=== PATIENT | female | born 1990 | race Hispanic/Latino ===

== ENCOUNTER 2017-11-17 21:52 | Inpatient (IN) | payer SELFPAY ==
[2017-11-17] MEDS ORDERED: DICYCLOMINE HCL 10 MG CAP ONE (22:30)
[2017-11-17] MEDS ORDERED: ONDANSETRON 4 MG/2 ML VIAL ONE ×2 (22:30→23:50)
[2017-11-17] MEDS ORDERED: FAMOTIDINE 20 MG/2 ML VIAL IV ONE (22:30)
[2017-11-17] MEDS ORDERED: NA CHLORIDE 0.9% 1,000 ML ONE (22:31)
[2017-11-17 23:00] LABS: Absolute Lymphocytes (CBC) 1.3 K/uL (0.7-4.9); Absolute Monocytes 0.7 K/uL (0.1-1.3); Absolute Neutrophil 15.3 K/uL (1.8-8.0); Basophils % 0.1 % (0-1.3); Eosinophils % 0.3 % (0-4.4); Lymphocytes % 7.4 % (15.3-44.8); MCH 29.5 pg (27.0-35.0); MCV 89.3 fL (80-100); MPV 10.3 fL (7.6-11.3); Monocytes % 3.8 % (3.3-12.3); RBC Red Blood Cell Count 4.48 M/uL (3.86-4.86)
[2017-11-17 23:11] LABS: Albumin 3.9 g/dL (3.4-5.0); Bilirubin Direct 0.1 mg/dL (0-0.2); Bilirubin Total 0.3 mg/dL (0.2-1.0); Potassium 3.4 mmol/L (3.5-5.1); Protein, Total 8.4 g/dL (6.4-8.2)
[2017-11-17] MEDS ORDERED: KETOROLAC 30 MG/ML INJ ONE (23:50)
[2017-11-18 00:50] LABS: Blood Morphology Comment NOT SEEN (NOT SEEN); Platelet Estimate ADEQ
[2017-11-18 01:09] LABS: Urine Blood TRACE (NEG); Urine Glucose NEGATIVE (NEG); Urine Protein TRACE (NEG); Urine pH 8.5 (5.0-7.0)
[2017-11-18] MEDS ORDERED: NA CHLORIDE 0.9% 1,000 ML ONE (01:27)
[2017-11-18] MEDS ORDERED: CEFTRIAXONE/SWI 1gm 1 GM/10 ML SYR ONE (01:40)
--- NOTE | 2017-11-18 02:32 | ER ---
Nurse's Notes [facility] Name: Gilma Deal Age: 27 yrs Sex: Female : 1990 Arrival Date: 11/17/2017 Time: 21:58 Bed 28 Private MD: Diagnosis: Upper abdominal pain, unspecified-Intractable;Nausea and vomiting Presentation: 11/17 22:15 Presenting complaint: Patient states: she is having upper abdominal pain since approx bb 1500 today has had this pain several times during the past few weeks but it went away today it is not going away and she has vomited several times. Transition of care: patient was not received from another setting of care. Onset of symptoms is unknown. Risk Assessment: Do you want to hurt yourself or someone else? Patient reports no desire to harm self or others. Initial Sepsis Screen: Does the patient meet any 2 criteria? No. Patient's initial sepsis screen is negative. Does the patient have a suspected source of infection? No. Patient's initial sepsis screen is negative. Care prior to arrival: None. 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 - Social history:: Smoking status: Patient/guardian denies using tobacco, Patient/guardian denies using alcohol, street drugs. - Ebola Screening: : No symptoms or risks identified at this time. Screenin:51 Abuse screen: Denies threats or abuse. Denies injuries from another. Nutritional mg2 screening: No deficits noted. Tuberculosis screening: No symptoms or risk factors identified. Fall Risk IV access (20 points). Assessment: 22:49 General: Appears uncomfortable, Behavior is cooperative, restless. Pain: Complains of mg2 pain in abdomen Pain radiates to back Pain currently is 10 out of 10 on a pain scale. Quality of pain is described as aching, Pain began gradually, \T\ 3 pm today Is intermittent. Neuro: Level of Consciousness is awake, alert, obeys commands, Oriented to person, place, time, situation. Cardiovascular: Capillary refill < 3 seconds Patient's skin is warm and dry. Respiratory: Airway is patent Respiratory effort is even, unlabored, Respiratory pattern is regular, symmetrical. GI: Bowel sounds present X 4 quads. Abd is soft and non tender. GI: Abdomen is flat, non-distended, Reports vomiting. : No signs and/or symptoms were reported regarding the genitourinary system. Urine is clear. EENT: No signs and/or symptoms were reported regarding the EENT system. Derm: Skin is intact, Skin is pink, warm \T\ dry. normal. Musculoskeletal: No signs and/or symptoms reported regarding the musculoskeletal system. 11/18 00:17 Reassessment: patient in ct scan now,. mg2 01:35 Reassessment: Patient appears in no apparent distress at this time. Patient and/or mg2 family updated on plan of care and expected duration. Pain level reassessed. Patient is alert, oriented x 3, equal unlabored respirations, skin warm/dry/pink. 03:23 Reassessment: Patient and/or family updated on plan of care and expected duration. Pain mg2 level reassessed. Patient is alert, oriented x 3, equal unlabored respirations, skin warm/dry/pink. pt instructed on need for admit verbalized understanding of and agrees to plan of care. IV site intact, patent with fluids infusing family at bedside awaiting room assignment. Vital Signs: 11/17 22:17 BP 109 / 65; Pulse 58; Resp 18 S; Temp 98.3(O); Pulse Ox 100% on R/A; Weight 67 kg (R); bb Height 5 ft. 6 in. (170 cm) (R); Pain 10/10; 23:04 BP 98 / 53; Pulse 58; Resp 17; Pulse Ox 100% on R/A; Pain 5/10; mg2 11/18 00:31 BP 120 / 47; Pulse 58; Resp 18; Pulse Ox 100% on R/A; mg2 03:25 BP 110 / 60; Pulse 54; Resp 16; Temp 97.8(O); Pulse Ox 100% on R/A; mg2 11/17 22:17 Body Mass Index 23.18 (67.00 kg, 170 cm) bb ED Course: 11/17 21:58 Patient arrived in ED. ag3 22:03 Dmitry Burkett PA is PHCP. cp 22:03 Dmitry Hough MD is Attending Physician. cp 22:17 Triage completed. bb 22:17 Arm band placed on Patient placed in an exam room, on a stretcher, on pulse oximetry. bb Family accompanied patient. 22:20 Tacos Tabor, TANIA is Primary Nurse. mg2 22:51 No provider procedures requiring assistance completed. Inserted saline lock: 20 gauge mg2 in right antecubital area, using aseptic technique. Blood collected. 22:52 Radiology exam delayed due to lab results not completed at this time. test kw1 not completed at this time. 11/18 00:30 CT Abd/Pelvis - W/Contrast In Process Unspecified. EDMS 01:35 Patient has correct armband on for positive identification. mg2 02:31 Lewis Friedman MD is Hospitalizing Provider. cp 04:14 Patient admitted, IV remains in place. bb Administered Medications: 11/17 22:46 Drug: NS 0.9% 1000 ml Route: IV; Rate: 1 bolus; Site: right antecubital; mg2 23:42 Follow up: Response: No adverse reaction; IV Status: Completed infusion mg2 22:46 Drug: Bentyl 20 mg Route: PO; mg2 23:42 Follow up: Response: No adverse reaction; Marked relief of symptoms mg2 22:47 Drug: Zofran 4 mg Route: IVP; Site: right antecubital; mg2 23:42 Follow up: Response: No adverse reaction; Marked relief of symptoms mg2 22:47 Drug: Pepcid 20 mg Route: IVP; Site: right antecubital; mg2 23:42 Follow up: Response: No adverse reaction; Marked relief of symptoms mg2 11/18 00:02 Drug: Zofran 4 mg Route: IVP; Site: right antecubital; mg2 03:37 Follow up: Response: No adverse reaction bb 00:02 Drug: TORadol 30 mg Route: IVP; Site: right antecubital; mg2 03:37 Follow up: Response: No adverse reaction bb 01:24 Drug: NS 0.9% 1000 ml Route: IV; Rate: 125 ml/hr; Site: right antecubital; mg2 03:38 Follow up: IV Status: Infusion continued upon admission bb 01:40 Drug: Rocephin - (cefTRIAXone) 1 grams Route: IVPB; Infused Over: 30 mins; Site: right mg2 antecubital; 01:50 Follow up: IV Status: Completed infusion; IV Intake: 10ml ; administered per protocol bb 01:58 Not Given (Patient Refused): morphine 2 mg IVP once mg2 03:12 Drug: metroNIDAZOLE 500 mg Volume: 100 ml; Route: IVPB; Infused Over: 30 mins; Site[place] [facility] [place]cubital; 03:38 Follow up: IV Status: Completed infusion; IV Intake: 100ml bb Intake: 01:50 IV: 10ml; Total: 10ml. bb 03:38 IV: 100ml; Total: 110ml. bb Outcome: 02:31 Decision to Hospitalize by Provider. cp 03:26 Admitted to Med/surg mg2 03:26 Condition: stable 03:26 Instructed on the need for admit. 04:14 Admitted to Tele via wheelchair, room 414, with chart, Report called to Estiven MARIN bb 04:42 Patient left the ED. tl2 Signatures: Dispatcher [employer] EDMS Daja Rios RN RN bb Dmitry Burkett PA PA cp Emelia Bonilla RN RN tl2 Alexa Mejias 1 Tacos Tabor RN RN mg2 Suzy Stanford3
--- NOTE | 2017-11-18 02:32 | EDPHYS ---
Physician Documentation [facility] Name: Gilma Deal Age: 27 yrs Sex: Female : 1990 Arrival Date: 11/17/2017 Time: 21:58 Bed 28 Private MD: ED Physician Dmitry Hough HPI: 11/17 22:20 This 27 yrs old Female presents to ER via Ambulatory with complaints of cp Abdominal Pain. 22:20 The patient presents with abdominal pain. The symptoms are described as constant. cp Severity of pain: in the emergency department the pain is unchanged despite home interventions. 22:20 Onset: The symptoms/episode began/occurred 3 week(s) ago, and became worse today, and cp persistent. 22:20 Associated signs and symptoms: Pertinent positives: nausea and vomiting, Pertinent cp negatives: constipation, fever, vomiting blood. Modifying factors: the symptoms are aggravated by pressure. 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 - Social history:: Smoking status: Patient/guardian denies using tobacco, Patient/guardian denies using alcohol, street drugs. - Ebola Screening: : No symptoms or risks identified at this time. ROS: 22:25 Constitutional: Negative for body aches, chills, fever, poor PO intake. cp 22:25 Eyes: Negative for injury, pain, redness, and discharge. cp 22:25 ENT: Negative for drainage from ear(s), ear pain, sore throat, difficulty swallowing, difficulty handling secretions. 22:25 Cardiovascular: Negative for chest pain, edema, palpitations. 22:25 Respiratory: Negative for cough, shortness of breath, wheezing. 22:25 Abdomen/GI: Positive for abdominal pain, nausea and vomiting, Negative for constipation, hematemesis, black/tarry stool, rectal bleeding. 22:25 Back: Positive for radiated pain. 22:25 : Negative for urinary symptoms, vaginal bleeding, vaginal discharge. 22:25 Skin: Negative for cellulitis, rash. 22:25 Neuro: Negative for altered mental status, headache, syncope, near syncope, weakness. 22:25 All other systems are negative. Exam: 22:33 Constitutional: The patient appears in no acute distress, alert, awake, non-toxic, well cp developed, well nourished, uncomfortable. 22:33 Head/Face: Normocephalic, atraumatic. Eyes: Pupils equal round and reactive to light, cp extra-ocular motions intact. Lids and lashes normal. Conjunctiva and sclera are non-icteric and not injected. Cornea within normal limits. Periorbital areas with no swelling, redness, or edema. ENT: Nares patent. No nasal discharge, no septal abnormalities noted. Tympanic membranes are normal and external auditory canals are clear. Oropharynx with no redness, swelling, or masses, exudates, or evidence of obstruction, uvula midline. Mucous membranes moist. 22:33 Neck: ROM/movement: is normal, is supple, without pain, no range of motions limitations, no nuchal rigidity. 22:33 Chest/axilla: Inspection: normal, Palpation: is normal, no crepitus, no tenderness. 22:33 Cardiovascular: Rate: bradycardic, Rhythm: regular, Heart sounds: murmur, not appreciated, Edema: is not appreciated, JVD: is not appreciated. 22:33 Respiratory: the patient does not display signs of respiratory distress, Respirations: normal, no use of accessory muscles, no retractions, no splinting, no tachypnea, labored breathing, is not present, Breath sounds: are clear throughout, no decreased breath sounds, no stridor, no wheezing. 22:33 Abdomen/GI: Inspection: abdomen appears normal, Bowel sounds: active, all quadrants, Palpation: soft, in all quadrants, severe abdominal tenderness, in the anterior aspect of right lateral abdomen and right upper quadrant, rebound tenderness, is appreciated in the anterior aspect of right lateral abdomen and right upper quadrant, voluntary guarding, is elicited in the anterior aspect of right lateral abdomen and right upper quadrant. 22:33 Back: pain, that is moderate, of the mid back area. 22:33 Skin: cellulitis, is not appreciated, no rash present. Vital Signs: 22:17 BP 109 / 65; Pulse 58; Resp 18 S; Temp 98.3(O); Pulse Ox 100% on R/A; Weight 67 kg (R); bb Height 5 ft. 6 in. (170 cm) (R); Pain 10/10; 23:04 BP 98 / 53; Pulse 58; Resp 17; Pulse Ox 100% on R/A; Pain 5/10; mg2 11/18 00:31 BP 120 / 47; Pulse 58; Resp 18; Pulse Ox 100% on R/A; mg2 03:25 BP 110 / 60; Pulse 54; Resp 16; Temp 97.8(O); Pulse Ox 100% on R/A; mg2 11/17 22:17 Body Mass Index 23.18 (67.00 kg, 170 cm) bb MDM: 11/17 22:03 Patient medically screened. cp 11/18 00:00 Differential diagnosis: cholecystitis, Cholelithiasis, gastritis, pancreatitis, cp Ureterolithiasis, urinary tract infection. 02:25 Physician consultation: Lewis Friedman MD was called at 02:25, was contacted at 02:25, cp regarding admission, to the medical/surgical unit. patient's condition. 02:30 Data reviewed: vital signs, nurses notes, lab test result(s), radiologic studies, CT cp scan. 11/17 22:16 Order name: Basic Metabolic Panel; Complete Time: 23:40 cp 11/17 23:40 Interpretation: Normal except: K 3.4; GLUC 121; GFR 85. cp 11/17 22:16 Order name: CBC with Diff; Complete Time: 01:11 cp 11/17 23:40 Interpretation: Normal except: WBC 17.3; KAMILLE% 88.4; LYM% 7.4; NEUT A 15.3. cp 11/17 22:16 Order name: Creatinine for Radiology; Complete Time: 23:40 cp 11/17 22:16 Order name: Hepatic Function; Complete Time: 23:40 cp 11/17 23:40 Interpretation: Normal except: TP 8.4; GLOB 4.5; A/G 0.9. cp 11/17 22:16 Order name: Lipase; Complete Time: 23:40 cp 11/17 22:49 Order name: Urine Dipstick--Ancillary (enter results); Complete Time: 01:11 ms 11/17 22:49 Order name: Urine --Ancillary (enter results); Complete Time: 01:11 ms 11/17 23:13 Order name: Manual Differential; Complete Time: 01:11 EDMS 11/18 01:11 Interpretation: Normal except: SEGS 85; LYM 7. cp 11/18 02:48 Order name: Basic Metabolic Panel EDMS 11/18 02:48 Order name: Basic Metabolic Panel EDMS 11/18 02:48 Order name: Basic Metabolic Panel EDMS 11/18 02:48 Order name: CBC with Automated Diff EDMS 11/18 02:48 Order name: CBC with Automated Diff EDMS 11/18 02:48 Order name: CBC with Automated Diff EDMS 11/17 22:16 Order name: CT Abd/Pelvis - W/Contrast cp 11/18 02:48 Order name: Lipase EDMS 11/18 02:48 Order name: Lipase EDMS 11/18 02:48 Order name: Lipase EDCA 11/18 02:48 Order name: Liver (Hepatic) Function EDCA 11/18 02:48 Order name: Liver (Hepatic) Function EDCA 11/18 02:48 Order name: Liver (Hepatic) Function EDCA 11/18 02:49 Order name: Abdomen Exam Limited EDCA 11/17 22:16 Order name: IV Saline Lock; Complete Time: 22:49 cp 11/17 22:16 Order name: Labs collected and sent; Complete Time: 22:49 cp 11/18 02:48 Order name: NPO EDMS Administered Medications: 11/17 22:46 Drug: NS 0.9% 1000 ml Route: IV; Rate: 1 bolus; Site: right antecubital; mg2 23:42 Follow up: Response: No adverse reaction; IV Status: Completed infusion mg2 22:46 Drug: Bentyl 20 mg Route: PO; mg2 23:42 Follow up: Response: No adverse reaction; Marked relief of symptoms mg2 22:47 Drug: Zofran 4 mg Route: IVP; Site: right antecubital; mg2 23:42 Follow up: Response: No adverse reaction; Marked relief of symptoms mg2 22:47 Drug: Pepcid 20 mg Route: IVP; Site: right antecubital; mg2 23:42 Follow up: Response: No adverse reaction; Marked relief of symptoms mg2 11/18 00:02 Drug: Zofran 4 mg Route: IVP; Site: right antecubital; mg2 03:37 Follow up: Response: No adverse reaction bb 00:02 Drug: TORadol 30 mg Route: IVP; Site: right antecubital; mg2 03:37 Follow up: Response: No adverse reaction bb 01:24 Drug: NS 0.9% 1000 ml Route: IV; Rate: 125 ml/hr; Site: right antecubital; mg2 03:38 Follow up: IV Status: Infusion continued upon admission bb 01:40 Drug: Rocephin - (cefTRIAXone) 1 grams Route: IVPB; Infused Over: 30 mins; Site: right mg2 antecubital; 01:50 Follow up: IV Status: Completed infusion; IV Intake: 10ml ; administered per protocol bb 01:58 Not Given (Patient Refused): morphine 2 mg IVP once mg2 03:12 Drug: metroNIDAZOLE 500 mg Volume: 100 ml; Route: IVPB; Infused Over: 30 mins; Site: mg2 right antecubital; 03:38 Follow up: IV Status: Completed infusion; IV Intake: 100ml bb Disposition: 07:18 Co-signature as Attending Physician, Dmitry Hough MD I agree with the assessment and antoinette plan of care. Disposition: 11/18/17 02:31 Hospitalization ordered by Lewis Friedman for Observation. Preliminary diagnosis are Upper abdominal pain, unspecified - Intractable, Nausea and vomiting. - Bed requested for Telemetry/MedSurg (observation). - Status is Observation. tl2 - Condition is Stable. - Problem is new. - Symptoms have improved. UTI on Admission? No Signatures: Dispatcher [employer] EDCA Litzy Ceja RN RN mw Anderson, Corey, MD MD cha Ballard, Brenda, RN RN bb Page, Corey, PA PA cp Knox, Taylor RN TANIA tl2 Tacos Tabor RN RN mg2 Corrections: (The following items were deleted from the chart) 03:23 02:31 Hospitalization Ordered by Lewis Friedman MD for Observation. Preliminary diagnosis mw is Upper abdominal pain, unspecified - Intractable; Nausea and vomiting. Bed requested for Telemetry/MedSurg (observation). Status is Observation. Condition is Stable. Problem is new. Symptoms have improved. UTI on Admission? No. cp 04:42 03:23 11/18/2017 02:31 Hospitalization Ordered by Lewis Friedman MD for Observation. tl2 Preliminary diagnosis is Upper abdominal pain, unspecified - Intractable; Nausea and vomiting. Bed requested for Telemetry/MedSurg (observation). Status is Observation. Condition is Stable. Problem is new. Symptoms have improved. UTI on Admission? No. mw :11/17 22:25 Constitutional: Negative for body aches, chills, fever, poor PO intake, cp cp 11/18 05:11/17 22:25 Eyes: Negative for injury, pain, redness, and discharge, cp cp 11/18 05:11/17 22:25 ENT: Negative for drainage from ear(s), ear pain, sore throat, difficulty cp swallowing, difficulty handling secretions, cp 11/18 05:11/17 22:25 Cardiovascular: Negative for chest pain, edema, palpitations, cp cp 11/18 05:11/17 22:25 Respiratory: Negative for cough, shortness of breath, wheezing, cp cp 11/18 05:11/17 22:25 Abdomen/GI: Positive for abdominal pain, nausea and vomiting, constipation, cp Negative for diarrhea, dysphagia, black/tarry stool, rectal bleeding, cp 11/18 05:11/17 22:25 Back: Negative for injury or acute deformity, radiated pain, cp cp 11/18 05:11/17 22:25 : Negative for urinary symptoms, vaginal bleeding, vaginal discharge, cp cp 11/18 05:11/17 22:25 Skin: Negative for cellulitis, rash, cp cp 11/18 05:11/17 22:25 Neuro: Negative for altered mental status, headache, weakness, cp cp 11/18 05:11/17 22:25 All other systems are negative, cp cp 11/18 05:11/17 22:20 Associated signs and symptoms: Pertinent positives: constipation, nausea, cp vomiting, Pertinent negatives: blood in stools, diarrhea, fever, shortness of breath, vomiting blood, cp 11/18 05:11/17 22:20 The patient has experienced similar episodes in the past, today's symptoms cp are similar, to previous bowel obstruction, cp
[2017-11-18] MEDS ORDERED: ACETAMINOPHEN 500 MG TAB PO PRN (02:43)
[2017-11-18] MEDS ORDERED: MORPHINE 4 MG/ML SYR IV PRN (02:43)
[2017-11-18] MEDS ORDERED: ONDANSETRON 4 MG/2 ML VIAL IV PRN (02:43)
[2017-11-18 04:39] VITALS: BMI 24.0
[2017-11-18] MEDS: METRONIDAZOLE 500mg IVPB 500 MG/100 ML BAG IV SCH ×4 (05:30→23:53)
[2017-11-18 06:03] LABS: Absolute Lymphocytes (CBC) 1.2 K/uL (0.7-4.9); Absolute Monocytes 0.6 K/uL (0.1-1.3); Absolute Neutrophil 15.9 K/uL (1.8-8.0); Basophils % 0.1 % (0-1.3); Hematocrit 35.3 % (36.0-45.0); Lymphocytes % 6.8 % (15.3-44.8); MCH 30.4 pg (27.0-35.0); MCV 89.7 fL (80-100); MPV 10.6 fL (7.6-11.3); Monocytes % 3.4 % (3.3-12.3); RBC Red Blood Cell Count 3.94 M/uL (3.86-4.86)
[2017-11-18 06:20] LABS: ALT/SGPT 19 U/L (12-78); AST/SGOT 15 U/L (15-37); Albumin 3.2 g/dL (3.4-5.0); Alkaline Phosphatase 50 U/L (45-117); BUN Blood Urea Nitrogen 8 mg/dL (7-18); Bicarbonate 25 mmol/L (21-32); Bilirubin Direct < 0.1 mg/dL (0-0.2); Bilirubin Total 0.3 mg/dL (0.2-1.0); Glucose Level 118 mg/dL (74-106); Lipase 152 U/L (73-393); Potassium 3.8 mmol/L (3.5-5.1); Protein, Total 7.1 g/dL (6.4-8.2); Sodium Level 140 mmol/L (136-145)
[2017-11-18] MEDS: D5 0.45 NS 1,000 ML IV SCH ×4 (07:17→23:53)
[2017-11-18] MEDS ORDERED: INFLUENZA VACCINE (for 3y+) 0.5 ML DOSE IMVAC ONE (08:00)
[2017-11-18] MEDS ORDERED: CEFTRIAXONE/SWI 1gm 1 GM/10 ML SYR IV SCH (09:00)
[2017-11-18] MEDS ORDERED: CEFTRIAXONE 1 GM/NS 50 ML 1 GM/50 ML BAG IV SCH (09:00)
--- NOTE | 2017-11-18 11:13 | RAD REPORT ---
EXAM DESCRIPTION: US - Abdomen Exam Limited - 11/18/2017 10:49 am CLINICAL HISTORY: RUQ/epigastric pain COMPARISON: No comparisons FINDINGS: The gallbladder demonstrates multiple shadowing gallstones. Gallbladder wall is thickened to 11 mm with intramural fluid. The common bile duct is mildly prominent measuring 8 mm. The liver demonstrates no findings of intrahepatic biliary dilatation. IMPRESSION: Acute cholecystitis is suspected.
--- NOTE | 2017-11-18 12:00 | RAD REPORT ---
EXAM DESCRIPTION: CTAbdomen Pelvis W Contrast - 11/18/2017 7:01 am CLINICAL HISTORY: Abdominal pain. Abd pain;Nausea / vomiting COMPARISON: Abdomen Exam Limited dated 11/18/2017 TECHNIQUE: Biphasic CT imaging of the abdomen and pelvis was performed with 100 ml non-ionic IV cont rast. All CT scans are performed using dose optimization technique as appropriate and may include automated exposure control or mA/KV adjustment according to patient size. FINDINGS: The lung bases are clear.Small bilateral pleural effusions. The liver, spleen, pancreas, adrenal glands and kidneys are within normal limits. The gallbladder robert ears distended with evidence of gallbladder wall thickening. No bowel obstruction, free air, intra-abdominal free fluid or abscess. The appendix is normal. No e vidence of significant lymphadenopathy. Trace pelvic free fluid. No suspicious bony findings. IMPRESSION: Gallbladder distension.
[2017-11-18] MEDS: CEFTRIAXONE/SWI 1gm 1 GM/10 ML SYR IV SCH (17:16)
--- NOTE | 2017-11-18 20:42 | HP ---
Date of Admission: 11/18/2017 Reason: Abdominal pain. History Of Present Illness: The patient is a 27-year-old female, who comes in with a 1 day episode o f biliary colic with epigastric pain going to the right upper quadrant to the back associated with na usea, bloating, belching, and heartburn. No vomiting. No diarrhea or constipation. No blood in her stool. No dysuria or hematuria. No sore throat, runny nose, cough, headaches, or dizziness. No ch est pain. No fever or chills. It is postprandial in nature and this is her third attack within the last month. Review of Systems: Otherwise unremarkable. Past Medical History: Negative. Past Surgical History: Negative. Allergies: INCLUDE PENICILLIN. Social History: She does not smoke. She does not drink alcohol. Family History: Noncontributory. Physical Examination: Vital Signs: Stable. She is afebrile. General: She is awake, alert, and oriented x3. Head and Neck: Cranial nerves 2 through 12 are grossly within normal limits. No neck masses. No JV D. Throat clear. Neck is supple. Chest: Clear. Heart: S1, S2. Abdomen: Soft, nondistended. Positive bowel sounds. Positive epigastric or right upper quadrant te nderness. No rebound, rigidity, or guarding. Extremities: Adequately perfused. Nontender. Neuro: Nonfocal. Diagnostic Data: CT of the abdomen and pelvis reveals a distended gallbladder, but no stones. Her w enedina count is 17.7 with a left shift. LFTs and amylase lipase are within normal limits. Assessment: Abdominal pain, most likely acute cholecystitis and cholelithiasis. Recommendations: We will keep her on antibiotics. We will await the results of the ultrasound and t hen, we will proceed with lap sharon, possible open. The patient via clinical project manager understands the risks , benefits, and alternatives and agrees to procedure. JANA/MODL Voice ID: [id number]
[2017-11-19] MEDS: D5 0.45 NS 1,000 ML IV SCH ×4 (03:00→22:21)
[2017-11-19] MEDS: METRONIDAZOLE 500mg IVPB 500 MG/100 ML BAG IV SCH ×4 (05:02→17:51)
[2017-11-19] MEDS: CEFTRIAXONE/SWI 1gm 1 GM/10 ML SYR IV SCH ×2 (05:02→17:44)
[2017-11-19 05:45] LABS: Absolute Lymphocytes (CBC) 2.4 K/uL (0.7-4.9); Absolute Monocytes 0.6 K/uL (0.1-1.3); Absolute Neutrophil 6.8 K/uL (1.8-8.0); Basophils % 0.3 % (0-1.3); Eosinophils % 1.6 % (0-4.4); Hematocrit 30.1 % (36.0-45.0); Lymphocytes % 23.6 % (15.3-44.8); MCH 30.2 pg (27.0-35.0); MCV 89.4 fL (80-100); MPV 10.5 fL (7.6-11.3); Monocytes % 6.4 % (3.3-12.3); RBC Red Blood Cell Count 3.37 M/uL (3.86-4.86)
[2017-11-19 06:00] LABS: ALT/SGPT 15 U/L (12-78); AST/SGOT 11 U/L (15-37); Albumin 2.5 g/dL (3.4-5.0); Alkaline Phosphatase 36 U/L (45-117); BUN Blood Urea Nitrogen 4 mg/dL (7-18); Bicarbonate 28 mmol/L (21-32); Bilirubin Direct < 0.1 mg/dL (0-0.2); Bilirubin Total 0.3 mg/dL (0.2-1.0); Glucose Level 115 mg/dL (74-106); Lipase 144 U/L (73-393); Magnesium 1.9 mg/dL (1.8-2.4); Phosphorus 2.3 mg/dL (2.5-4.9); Potassium 3.5 mmol/L (3.5-5.1); Protein, Total 5.6 g/dL (6.4-8.2); Sodium Level 142 mmol/L (136-145)
[2017-11-19] MEDS ORDERED: MIDAZOLAM HCL 2 MG/2 ML INJ ONE (09:28)
[2017-11-19] MEDS ORDERED: PROPOFOL 200 MG/20 ML VIAL IV ONE (09:28)
[2017-11-19] MEDS ORDERED: DEXAMETHASONE 10 MG/ML VIAL ONE (09:28)
[2017-11-19] MEDS ORDERED: KETOROLAC 30 MG/ML INJ ONE (09:28)
[2017-11-19] MEDS ORDERED: FENTANYL CITR 100 MCG/2 ML ONE (09:28)
[2017-11-19] MEDS ORDERED: LIDOCAINE 2% MPF 5 ML VIAL ONE (09:29)
[2017-11-19] MEDS ORDERED: ROCURONIUM 50 MG/5 ML VIAL IV ONE (09:29)
[2017-11-19] MEDS ORDERED: ONDANSETRON HCL 40 MG/20 ML VIAL ONE (09:29)
[2017-11-19] MEDS ORDERED: Ringers Lactate 1,000 ML IV ONE (09:53)
[2017-11-19] MEDS: BUPIVACAINE 0.5% PF 10 ML VIAL ONE ×2 (10:08→10:45)
[2017-11-19] MEDS ORDERED: SCOPOLAMINE HYDROBROMIDE PATCH TD ONE (10:49)
[2017-11-19] MEDS ORDERED: EPHEDRINE SULF 50 MG/10 ML SYR ONE (11:26)
[2017-11-19] MEDS ORDERED: KETAMINE HCL 500 MG/5 ML VIAL ONE (11:35)
--- NOTE | 2017-11-19 11:38 | P.OP ---
Mobile Home Servicer: Keyon ZELAYA Preoperative diagnosis: Acute Cholecystitis and Cholelithiasis Postoperative diagnosis: same Primary procedure: Lap Giovanna Anesthesia: Gen Estimated blood loss: min Specimen: gb Findings: as above Complications: None Transferred to: Recovery Room Condition: Good
[2017-11-19] MEDS ORDERED: ONDANSETRON 4 MG/2 ML VIAL IV PRN (11:43)
[2017-11-19] MEDS ORDERED: HYDROCODONE/APAP 7.5/325 MG TAB PO PRN (11:43)
[2017-11-19] MEDS ORDERED: NEOSTIGMINE 1 MG/ML -5 ML SYRINGE ONE (11:43)
[2017-11-19] MEDS ORDERED: GLYCOPYRROLATE 0.2 MG/ML SYR ONE (11:43)
[2017-11-19] MEDS: HYDROMORPHONE HCL 1 MG/ML INJ IV PRN ×2 (13:14→19:44)
[2017-11-19] MEDS ORDERED: BUPIVACAINE 0.5% PF 10 ML VIAL ONE (14:49)
--- NOTE | 2017-11-19 22:21 | OP ---
Date of Procedure: 11/19/2017 Surgeon: Lewis Friedman MD Director Sanitation Bureau: GARCIA Ceballos. Preoperative Diagnoses: Acute cholecystitis and cholelithiasis. Postoperative Diagnoses: Acute cholecystitis and cholelithiasis. Procedure Performed: Laparoscopic cholecystectomy. Estimated Blood Loss: Minimal. Specimen: Gallbladder. Finding: As above. Anesthesia: General. Complications: None. Disposition: The patient tolerated the procedure in stable condition and taken to recovery room in g ood general condition. Operative Note: The patient was brought to the OR and placed in supine position. General anesthesia was begun. The patient was prepped and draped in usual sterile fashion. Marcaine 0.5% was infiltra janine locally. A 15-blade was used to make a 1 cm supraumbilical midline incision. Subcutaneous tissu e was divided. The fascia was identified and divided. A #1 Vicryl stay suture was placed. Peritone al cavity was entered with a sharp and blunt dissection. A 12-mm trocar was placed into the peritone al cavity under direct vision. Pneumoperitoneum was established and then three 5-mm trocars were julieta wei, 1 in the epigastrium just to the right of midline and 2 in the right subcostal region. Laparosc opy revealed acute inflammation of the gallbladder with distention. Gallbladder was aspirated. Fund us retracted superiorly. Infundibulum was identified and retracted inferolaterally. Cystic duct and cystic artery were clearly identified with blunt dissection. Clips placed. Both structures were di vided. Cautery was used to remove the gallbladder from the liver bed. Bleeding on the liver bed was controlled with cautery. The gallbladder was retrieved through the umbilicus via an EndoCatch bag. Right upper quadrant was irrigated. Effluent was clear. No evidence of bleeding or bile leakage ap preciated. Please note, the patient had some few Qrek-Rxyj-Crheae adhesions over the right lobe of t he liver which were lysed sharply. Subsequently, all trocars were removed under direct vision. Stay sutures were tied to each other to close the fascial defect. Subcutaneous wounds were irrigated. B leeding controlled with cautery. A 3-0 chromic was used to approximate the subcutaneous tissue and c lose the skin. Sterile dressing was applied. The patient was awakened and taken to recovery room in good general condition. /MODL Voice ID: [id number] Report ID: [id number]
[2017-11-20] MEDS: METRONIDAZOLE 500mg IVPB 500 MG/100 ML BAG IV SCH ×3 (01:23→12:05)
[2017-11-20] MEDS: D5 0.45 NS 1,000 ML IV SCH ×3 (03:00→11:00)
[2017-11-20 04:41] LABS: Absolute Lymphocytes (CBC) 1.8 K/uL (0.7-4.9); Absolute Monocytes 0.7 K/uL (0.1-1.3); Absolute Neutrophil 11.8 K/uL (1.8-8.0); Basophils % 0.2 % (0-1.3); Hematocrit 32.3 % (36.0-45.0); Lymphocytes % 12.7 % (15.3-44.8); MCH 29.9 pg (27.0-35.0); MCV 90.4 fL (80-100); MPV 10.4 fL (7.6-11.3); Monocytes % 5.1 % (3.3-12.3); RBC Red Blood Cell Count 3.57 M/uL (3.86-4.86)
[2017-11-20 04:49] LABS: BUN Blood Urea Nitrogen 3 mg/dL (7-18); Bicarbonate 27 mmol/L (21-32); Glucose Level 125 mg/dL (74-106); Potassium 3.4 mmol/L (3.5-5.1); Sodium Level 141 mmol/L (136-145)
[2017-11-20] MEDS: HYDROMORPHONE HCL 1 MG/ML INJ IV PRN (05:45)
[2017-11-20] MEDS: CEFTRIAXONE/SWI 1gm 1 GM/10 ML SYR IV SCH (05:46)
[2017-11-20] MEDS ORDERED: INFLUENZA VACCINE (for 3y+) 0.5 ML DOSE IMVAC ONE (11:00)
[2017-11-20 11:04] VITALS: O2SAT 99
[2017-11-20 12:30] VITALS: BP 94/44; TEMP 98.6
--- NOTE | 2017-11-21 05:36 | DS ---
Date of Discharge: 11/20/2017 Admitting Diagnoses: Acute abdominal pain, acute cholecystitis, cholelithiasis. Discharge Diagnoses: Acute abdominal pain, acute cholecystitis, cholelithiasis. Procedure Performed: Laparoscopic cholecystectomy. Hospital Course: The patient is a 27-year-old female, who underwent the aforementioned procedure yes terday. Postoperatively, she is tolerating diet, ambulating, pain controlled on p.o. pain medication , afebrile. Therefore, the patient will be discharged to home. Disposition: Home. Condition: Stable. Discharge Instructions: Resume home medicines and diet. Activity as tolerated. No heavy lifting. Remove outer dressing in 2 days. Shower. Keep the wound clean and dry. Keep Steri-Strips on at all times. Follow up in my office in 1 week, call for appointment. Tylenol No. 3, one tablet p.o. q.4 p.r.n. pain. /MODL Voice ID: [id number] Report ID: [id number]
== END 2017-11-20 16:37 | disposition home or self-care (01) | DRG 419 ==
LOC: ER 21:52 → ERHOLD 11-18 03:00 → OBSVTOIN 11-18 03:00 → 4TH 11-18 04:05
PROVIDERS: ADMIT Surgery; ATTEND Surgery
PROC: 0FT44ZZ Resection of Gallbladder, Percutaneous Endoscopic Approach (ICD-10-PCS; principal; 2017-11-19 10:00)
DX: K80.00 Calculus of gallbladder with acute cholecystitis without obstruction (principal); Z23 Encounter for immunization
CPT/HCPCS: 36415; 74177; 76705; 80048; 80076; 81003; 81025; 83690; 83735; 84100; 85025; 88304; 96361; 96365; 96375; 99285; J0696; J1100; J1170; J2250; J2405; J2710; J3010; J7030; Q9967